=== PATIENT | male | born 1955 | race Hispanic/Latino ===

== ENCOUNTER 2021-12-30 21:11 | Emergency (ER) | payer MEDICARE | END 2021-12-30 22:15 | disposition home or self-care (01) | LOC: BURERS 21:11 | DX: R33.9 Retention of urine, unspecified (principal) | CPT/HCPCS: 51702 ==

== ENCOUNTER 2023-01-05 15:58 | Emergency (ER) | payer OTHER, MEDICARE | END 2023-01-05 17:03 | disposition home or self-care (01) | LOC: BURERS 15:58 | DX: S43.402A Unspecified sprain of left shoulder joint, initial encounter (principal); E11.9 Type 2 diabetes mellitus without complications; I10 Essential (primary) hypertension; Z86.73 Personal history of transient ischemic attack (TIA), and cerebral infarction without residual deficits; Z79.899 Other long term (current) drug therapy; Z79.84 Long term (current) use of oral hypoglycemic drugs; Z79.82 Long term (current) use of aspirin; Z79.85 Long-term (current) use of injectable non-insulin antidiabetic drugs; Z79.4 Long term (current) use of insulin; V89.2XXA Person injured in unspecified motor-vehicle accident, traffic, initial encounter ==